=== PATIENT | female | born 1945 | race Caucasian/White ===

== ENCOUNTER 2016-07-07 07:29 | Emergency (ER) | payer MEDICARE, MEDICAID ==
[~2016-07-07] VITALS: Ht 152.4 cm; Wt 63.5 kg
[2016-07-07] MEDS ORDERED: SIMV20TA6 PO (07:43)
[2016-07-07] MEDS ORDERED: MULT1TAB73 PO (07:43)
[2016-07-07] MEDS ORDERED: ACETAMINOPHEN W/ CODEINE#3 1 EA TABLET ONE (08:53)
[2016-07-07] MEDS ORDERED: TDAP [DIPH/PERTUSSIS/TET] 0.5 ML VIAL IM ONE ×2 (08:55→09:00)
[2016-07-07] MEDS ORDERED: ACETAMINOPHEN W/ CODEINE#3 1 EA TABLET PO ONE (09:00)
[2016-07-07 09:12] VITALS: BP 131/62
== END 2016-07-07 09:13 | disposition home or self-care (01) ==
LOC: ER 07:34
DX: S01.81XA Laceration without foreign body of other part of head, initial encounter (principal); S16.1XXA Strain of muscle, fascia and tendon at neck level, initial encounter; S09.90XA Unspecified injury of head, initial encounter; M41.9 Scoliosis, unspecified; W01.198A Fall on same level from slipping, tripping and stumbling with subsequent striking against other object, initial encounter; Y93.89 Activity, other specified; Y92.89 Other specified places as the place of occurrence of the external cause; Y99.8 Other external cause status
CPT/HCPCS: 12011; 70450; 70486; 72125; 90471; 90715; 99284; A4606; A6402; A6403; Z7610